=== PATIENT | female | born 1930 | race Caucasian/White ===

== ENCOUNTER 2016-10-03 05:20 | Inpatient (IN) | payer MEDICARE, OTHER ==
[~2016-10-03 05:20] MED LIST: ARTHRITIS PAIN650 M6 PO; ASPIRIN EC81 MG PO; BISOPROLOL FUMAR5 M1 PO; CALCIUM 600 +1 EA15 PO; ENALAPRIL MALEA10 M1 PO; ENALAPRIL-HCTZ1 EACH PO; GENTEAL MILD TO25 ML EACH EYE; MELOXICAM7.5 M1 PO; PRESERVISION L1 EACH PO; TYLENOL325 M2 PO; VITAMIN D31000 UNI3 PO; [UNRECOGNIZED DRUG - OTHER] EACH EYE
[2016-10-04 06:14] LABS: BASO % 0.1 % (0-2); EOS % 0.1 % (0-7); HCT-HEMATOCRIT 28.5 % (34.0-49.0); HGB-HEMOGLOBIN 9.2 gm/dl (12.0-15.5); IMMATURE GRANULOCYTES ABSOLUTE 0.02 tho/cmm (0-0.03); IMMATURE GRANULOCYTES PERCENT 0.2 % (0-0.3); LYMPH % 12.4 % (20-45); LYMPH ABSOLUTE COUNT 1.1 tho/cmm (0.8-4.5); MCH (MEAN CORPUSCULAR HGB) 31.6 pg (28.0-32.0); MCHC MEAN CORPUSCULAR HGB CONC 32.3 % (32.0-36.0); MCV (MEAN CELL VOLUME) 97.9 fl (82.0-96.0); MEAN PLATELET VOLUME 10.4 cmc (9.4-12.4); MONO % 8.1 % (0-12); MONOCYTE ABSOLUTE COUNT 0.7 tho/cmm (0.0-1.2); NEUTROPHIL ABSOLUTE COUNT 7.1 tho/cmm (1.6-8.0); NEUTROPHIL-AUTOMATED 7.1 tho/cmm (1.6-8.0); NEUTROPHILS % 79.1 % (40-80); PLATELET COUNT 194 tho/cmm (150-450); RED BLOOD COUNT 2.91 mil/cmm (4.00-5.20); RED CELL DISTRIBUTION WIDTH 12.4 % (12.4-16.4)
[2016-10-05] MEDS ORDERED: ROXICODONE5 M2 PO (11:02)
[2016-10-05] MEDS ORDERED: XARELTO10 M1 PO (11:05)
[2016-10-05] MEDS ORDERED: ASPIRIN325 M3 PO (11:06)
[2016-10-05] MEDS ORDERED: MOBIC7.5 M2 PO (11:07)
[2016-10-05] MEDS ORDERED: ULTRAM50 M1 PO (11:08)
== END 2016-10-05 15:10 | DRG 470 ==
LOC: SHSB 05:20 → ORE 07:08 → PACU 09:36 → 5EA 10:25
PROVIDERS: ADMIT Orthopaedic Surgery
PROC: 0SRC0J9 Replacement of Right Knee Joint with Synthetic Substitute, Cemented, Open Approach (ICD-10-PCS; principal; 2016-10-03)
DX: M17.11 Unilateral primary osteoarthritis, right knee (principal); I44.7 Left bundle-branch block, unspecified; I10 Essential (primary) hypertension; H02.401 Unspecified ptosis of right eyelid; M21.061 Valgus deformity, not elsewhere classified, right knee; N39.41 Urge incontinence; H35.30 Unspecified macular degeneration; Z85.3 Personal history of malignant neoplasm of breast; Z90.710 Acquired absence of both cervix and uterus
CPT/HCPCS: C1713; C1776; C9290; J0690; J1885; J2270; J2405